=== PATIENT | female | born 1985 | race Caucasian/White ===

== ENCOUNTER 2017-09-23 08:28 | Day surgery (SDC) | payer OTHER ==
[2017-09-21 15:34] VITALS: BMI 43.4
[2017-09-23] MEDS ORDERED: MIDAZOLAM HCL 2 MG/2 ML SINGLE DOSE VIAL ONE ×2 (09:12)
[2017-09-23] MEDS ORDERED: ROPIVACAINE HCL 0.5% 30ML VIAL ONE (09:13)
--- NOTE | 2017-09-23 09:40 | HP ---
[facility]ellite [facility] - Chief Complaint Chief Complaint: left knee pain - Past Medical History Allergies/Adverse Reactions: Allergies Allergy/AdvReac Type Severity Reaction Status Date / Time No Known Allergies Allergy Verified 09/23/17 09:19 ...LMP: 07/19/17 ...LMP Comment: on birthcontrol - Current Medications Current Medications: Home Medications Medication Instructions Recorded Control Pill 09/21/17 Levothyroxine [Synthroid -] 200 mcg PO DAILY 09/21/17 Metformin HCl [Glucophage -] 500 mg PO BID 09/21/17 Satellite Physical Exam - Physical Examination Vital Signs: Vital Signs Period Temp Pulse Resp BP Sys/Goldberg Pulse Ox Last 24 Hr 97.6 F 106 20 126/85 99 Extremities: Other (+ marla) Satellite Impression/Plan - Impression/Plan Impression: L ACL TEAR Operative Procedure: L ACL RECONSTRUCTION Date to be Performed: 09/23/17
[2017-09-23] MEDS ORDERED: fentaNYL CITRATE 250 MCG/5 ML VIAL ONE (09:48)
[2017-09-23] MEDS ORDERED: NEOSTIGMINE METHYLSULFATE 0.5 MG/ML - 10 ML MDV ONE ×2 (09:55→10:29)
[2017-09-23] MEDS ORDERED: GLYCOPYRROLATE 0.2 MG/1 ML VIAL ONE ×2 (09:55→10:28)
[2017-09-23] MEDS ORDERED: ceFAZolin SODIUM 1 GM VIAL IVPB ONE (10:15)
[2017-09-23] MEDS ORDERED: SODIUM CHLORIDE 0.9% P/F 10 ML VIAL IJ ONE (10:19)
[2017-09-23] MEDS ORDERED: ceFAZolin SODIUM 1 GM VIAL ONE (10:19)
[2017-09-23] MEDS ORDERED: PROPOFOL 20 ML ONE ×2 (10:24→10:29)
[2017-09-23] MEDS ORDERED: ROCURONIUM BROMIDE 50 MG/5 ML VIAL ONE (10:30)
--- NOTE | 2017-09-23 11:19 | OP ---
Operative Note - Note: Operative Date: 09/23/17 ([facility]) Pre-Operative Diagnosis: left knee acl rupture Operation: left knee arthroscopy with ACL reconstruction using graftlink allograft, PLM Post-Operative Diagnosis: Same as Pre-op Surgeon: Jordy Dowling [employer] Professor: Harrison Pereyra Anesthesiologist/ASSET ADMINISTRATOR: Wally Marcos Anesthesia: General, Local Specimens Removed: shavings Estimated Blood Loss (mls): 10 Operative Report Dictated: Yes
[2017-09-23] MEDS ORDERED: HYDROmorphone HCL CARPU-JECT 2 MG/1 ML DISP.SYRIN ONE (11:48)
[2017-09-23 12:28] VITALS: TEMP 98.1
[2017-09-23] MEDS ORDERED: oxyCODONE HCL 5 MG TABLET PO PRN (12:47)
[2017-09-23] MEDS ORDERED: ONDANSETRON 4 MG/2 ML VIAL IVPUSH PRN (12:47)
[2017-09-23] MEDS ORDERED: LACTATED RINGERS SOLUTION 1,000 ML IV SCH (13:00)
[2017-09-23] MEDS ORDERED: oxyCODONE HCL 5 MG TABLET PO ONE (14:40)
[2017-09-23] MEDS ORDERED: oxyCODONE HCL 5 MG TABLET ONE (14:41)
[2017-09-23 18:03] VITALS: BP 125/77; PULSE 90
--- NOTE | 2017-09-24 08:57 | OP ---
DATE OF OPERATION: 09/23/2017 PREOPERATIVE DIAGNOSIS: Left anterior cruciate ligament tear. POSTOPERATIVE DIAGNOSES: 1. Left anterior cruciate ligament tear. 2. Lateral meniscus tear. PROCEDURE: Left anterior cruciate ligament reconstruction with allograft and "GraftLink" and partial lateral meniscectomy. SURGICAL ATTENDING: Jordy Dowling MD CHILDCARE WORKER: BALWINDER Davies ANESTHESIA: Regional and general. CLOSURE: A GraftLink with appropriate bone buttons and then 3-0 nylon. ESTIMATED BLOOD LOSS: Negligible. COMPLICATIONS: None. CONDITION: To recovery room in stable condition. DESCRIPTION OF OPERATIVE PROCEDURE: Patient taken to the operating room on September 23, 2017. Regional and general anesthesia was administered by the anesthesiologist. IV Kefzol administered prophylactically prior to the case. The left lower extremity was prepped and draped in the usual sterile fashion. A superolateral and mediolateral infrapatellar portal sites were then made with a 15 blade, followed by blunt trocar. The outflow trocar was placed through the superomedial portal, and the working portals were the inferomedial and inferolateral portals. The scope was placed in the infrapatellar portal and up into the suprapatellar pouch. Pouch was visualized to be clean. The medial and lateral gutters were visualized to be clean. The undersurface of the patella and trochlea were visualized to be intact. With valgus stress on the knee, the medial compartment was entered. The medial meniscus was visualized, probed, and found to be intact. The medial femoral condyle was run and found to be intact as well as the medial tibial plateau. In the figure 4 position, the lateral compartment was entered. The lateral meniscus was visualized, probed, and found to have a flap tear near its root. This was debrided back to smooth and stable meniscal tissues using a meniscal biter and arthroscopic shaver. The root was probed and found to be intact. The lateral femoral condyle was run and found to be intact as was the lateral tibial plateau. At 90 degrees, the ACL was visualized and probed, was found to be torn, partially scarred to the PCL. This was debrided using the ArthroCare and the shaver. A notchplasty was performed, gaining sufficient width and height to perform the procedure. Using the [id number] guide and RetroDrill, a 10.5-mm tunnel was drilled in the posterior aspect of the notch to a depth of approximately 20 mm. All bone fragments were removed. The lateral cortex was left intact. Through this tunnel, placed a FiberStick, exiting the inferolateral portal, making this a shuttle suture for the graft at a later point. The tibial tunnel was then drilled with a retrograde FlipCutter just anterior to the PCL, exiting the anteromedial proximal tibia. Up through this tunnel was also placed a FiberStick which will be used as a shuttle suture. Both these loops were delivered through the inferomedial portal. The graft was placed through these shuttle sutures, and one limb was pulled up into the femoral tunnel, one limb down to the tibial tunnel. The femoral tunnel was done first, and the button was caught on the lateral cortex and cycled to ensure that it was flush on the bone. The toggle sutures were then used to pull the graft into the tunnel until it bottomed out. Next, the tibial shuttle suture was used to pull the graft down the tibial tunnel. The knee was cycled multiple times to ensure good seating. The button was then inserted on the sutures and was used to toggle the grafts down. This was done in full extension, achieving excellent tension. The knee was taken through a range of motion and found to have full flexion and full extension with negative Rocío and negative pivot shift. The sutures were cut snug. The portals were closed using 3-0 nylon. A sterile pressure dressing was placed over the knee. The patient was awakened from anesthesia and transferred to recovery room in stable condition. No complications. ESTIMATED BLOOD LOSS: Negligible. Mela [id number]
--- NOTE | 2017-09-25 16:55 | PATH ---
Surgical Pathology Report Patient Name: TERRIE RIDER [facility]. Rec. #: [id number] /Age/Gender: 1985 (Age: 32) / F Account: [id number] Location: [facility] SURGICAL Taken: 09/23/2017 Received: 09/24/2017 Reported: 09/25/2017 Physicians: Jordy Dowling M.D. Specimen(s) Received LEFT KNEE SHAVINGS Clinical History Left ACL tear Final Diagnosis KNEE SHAVINGS, LEFT, ACL REPAIR WITH ALLOGRAFT: CHRONIC SYNOVITIS. FRAGMENTS OF FIBROCARTILAGINOUS TISSUE, FIBROADIPOSE TISSUE, RARE SKELETAL MUSCLE, AND BONE Electronically Signed Carol Grace M.D. Gross Description Received in formalin, labeled "left knee shavings," is a 5.5 x 4.2 x 0.4 cm. aggregate of tijerina-yellow soft tissue fragments. A eligibility services representative portion is submitted in one cassette. 09/24/201709/24/2017
== END 2017-09-23 15:40 | disposition home or self-care (01) ==
LOC: JASU-SURG 08:28
PROVIDERS: ATTEND Orthopaedic Surgery
PROC: 0SBD4ZZ Excision of Left Knee Joint, Percutaneous Endoscopic Approach (ICD-10-PCS; 2017-09-23)
PROC: 0MQP4ZZ Repair Left Knee Bursa and Ligament, Percutaneous Endoscopic Approach (ICD-10-PCS; principal; 2017-09-23 10:00)
DX: S83.512A Sprain of anterior cruciate ligament of left knee, initial encounter (principal); S83.282A Other tear of lateral meniscus, current injury, left knee, initial encounter; X58.XXXA Exposure to other specified factors, initial encounter; Y93.9 Activity, unspecified; Y92.9 Unspecified place or not applicable; Y99.9 Unspecified external cause status
CPT/HCPCS: 84703; 88304-TC; 94760; 97116-GP